=== PATIENT | female | born 1950 | race Caucasian/White ===

== ENCOUNTER 2017-10-27 12:28 | Inpatient (IN) | payer OTHER ==
[~2017-10-27] VITALS: Ht 152.4 cm; Wt 90.7 kg
[~2017-10-27 12:28] MED LIST: CIPRO500 MG PO; ENALAPRIL MALEAT5 MG PO; FLAGYL500MG PO; GYNE-LOTRIMIN45 GM VG; LEVOTHYROXINE88 MCG PO; SYNTHROID88 MCG; VASOTEC5 MG
[2017-11-08] MEDS ORDERED: PANTOPRAZOLE SO40 MG PO (08:24)
[2017-11-08] MEDS ORDERED: INTESTINEX680 M1 PO (08:24)
[2017-11-08] MEDS ORDERED: OXYC1TAB9 PO (08:24)
== END 2017-11-08 11:27 | disposition home or self-care (01) | DRG 329 ==
LOC: SURG 11-01 08:12 → O/R 11-01 08:12 → SURH 11-01 12:30 → SURG 11-01 18:59 → MEDI 11-01 18:59 → SURG 11-02 14:38
PROVIDERS: Surgery; Urology
PROC: 0DJD8ZZ Inspection of Lower Intestinal Tract, Via Natural or Artificial Opening Endoscopic (ICD-10-PCS; 2017-11-01)
PROC: 0T788DZ Dilation of Bilateral Ureters with Intraluminal Device, Via Natural or Artificial Opening Endoscopic (ICD-10-PCS; 2017-11-01)
PROC: 4A033R1 Measurement of Arterial Saturation, Peripheral, Percutaneous Approach (ICD-10-PCS; 2017-11-01)
PROC: 4A12X4Z Monitoring of Cardiac Electrical Activity, External Approach (ICD-10-PCS; 2017-11-01)
PROC: 5A09457 Assistance with Respiratory Ventilation, 24-96 Consecutive Hours, Continuous Positive Airway Pressure (ICD-10-PCS; 2017-11-01)
PROC: 0DTN4ZZ Resection of Sigmoid Colon, Percutaneous Endoscopic Approach (ICD-10-PCS; principal; 2017-11-01 17:45)
PROC: 0DTP4ZZ Resection of Rectum, Percutaneous Endoscopic Approach (ICD-10-PCS; 2017-11-01 17:45)
DX: K57.20 Diverticulitis of large intestine with perforation and abscess without bleeding (principal); J95.821 Acute postprocedural respiratory failure; N82.3 Fistula of vagina to large intestine; J95.89 Other postprocedural complications and disorders of respiratory system, not elsewhere classified; J98.11 Atelectasis; I10 Essential (primary) hypertension; E03.8 Other specified hypothyroidism; G47.33 Obstructive sleep apnea (adult) (pediatric); E66.01 Morbid (severe) obesity due to excess calories; D64.89 Other specified anemias

== ENCOUNTER 2018-10-17 10:14 | Emergency (ER) | payer OTHER ==
[~2018-10-17] VITALS: Ht 157.5 cm; Wt 93.4 kg
[~2018-10-17 10:14] MED LIST changes: +INTESTINEX680 M1 PO; +OXYC1TAB9 PO; +PANTOPRAZOLE SO40 MG PO
[2018-10-17] MEDS ORDERED: SYNTHROID100 MCG (10:25)
[2018-10-17] MEDS ORDERED: HYDROCHLOROTHIA25 MG (10:26)
[2018-10-17] MEDS ORDERED: INDOMETHACIN50 MG (10:27)
[2018-10-17] MEDS ORDERED: BACLOFEN10 MG (10:27)
== END 2018-10-17 16:04 | disposition home or self-care (01) ==
LOC: ER 10:14
DX: K80.80 Other cholelithiasis without obstruction (principal); N20.0 Calculus of kidney; R10.32 Left lower quadrant pain

== ENCOUNTER 2018-11-08 06:44 | Day surgery (SDC) | payer OTHER ==
[~2018-11-08 06:44] MED LIST changes: +BACLOFEN10 MG; +HYDROCHLOROTHIA25 MG; +INDOMETHACIN50 MG; +SYNTHROID100 MCG
== END 2018-11-08 10:54 | disposition home or self-care (01) ==
LOC: AMB-ENDOS 06:44
DX: K57.30 Diverticulosis of large intestine without perforation or abscess without bleeding (principal); K64.8 Other hemorrhoids

== ENCOUNTER 2024-06-09 11:41 | Emergency (ER) | payer OTHER ==
[~2024-06-09] VITALS: Ht 165.1 cm; Wt 84.8 kg
[~2024-06-09 11:41] MED LIST changes: +CELEBREX100 MG PO; +LEVSIN/SL0.125 MG PO; +PEPCID AC20 MG PO
[2024-06-09] MEDS ORDERED: 0.9 % SODIUM CHLORIDE 1,000 ML IV SCH (12:15)
[2024-06-09 14:06] LABS: HEMATOCRIT 39.9 % (36.0-45.00); HEMOGLOBIN 13.8 g/dL (12.0-15.00); MEAN CELL VOLUME 95.8 fL (80.00-100.00); MEAN CORPUSCULAR HEMOGLOBIN 33.1 pg (27.00-32.0); MEAN CORPUSCULAR HGB CONC 34.6 g/dl (32.0-36.0); PLATELET COUNT 232 K/uL (150-450); RED BLOOD COUNT 4.16 M/uL (4.00-6.00); RED CELL DISTRIBUTION WIDTH 13.3 % (11.5-14.5)
[2024-06-09 14:25] LABS: CALCIUM 9.4 mg/dL (8.5-10.1); CREATININE SERUM 0.7 mg/dL (0.55-1.02); GFR 81.36; POTASSIUM 3.62 mEq/L (3.5-5.1)
[2024-06-09 14:44] LABS: AMYLASE 35 U/L (25-115); LIPASE 23 U/L (13-75)
[2024-06-09 16:07] LABS: PH,URINE 7.5 (5.0-8.0); URINE APPEARANCE Cloudy; URINE BILIRRUBIN Negative (NEGATIVE); URINE BLOOD Negative; URINE COLOR Yellow; URINE GLUCOSE Negative (NEGATIVE); URINE KETONE Negative (NEGATIVE); URINE LEUKOCYTE Trace; URINE NITRATE Negative; URINE PROTEIN Negative (NEGATIVE); URINE UROBILINOGEN 0.2 E.U./dl
[2024-06-09 16:17] LABS: URINE BACTERIA 2551.4 uL (0.0-1933); URINE RBC 6.4 uL (0.0-20.8); URINE WBC 49.6 uL (0.0-23.2)
[2024-06-09 16:58] LABS: URINE CAST 0.61 uL (0.0-1.40)
[2024-06-09] MEDS ORDERED: FAMOTIDINE/PF 20 MG in 0.9 % SODIUM CHLORIDE 8 ML IV PUSH STA (17:10)
[2024-06-09] MEDS ORDERED: KETOROLAC TROMETHAMINE 30 MG VIAL IV ONE (17:30)
[2024-06-09] MEDS ORDERED: BACTRIM DS TAB1 EACH PO (19:38)
[2024-06-09] MEDS ORDERED: PEPCID AC20 MG PO (19:38)
[2024-06-09] MEDS ORDERED: LEVSIN/SL0.125 MG SL (19:38)
[2024-06-09] MEDS ORDERED: CEFTRIAXONE SODIUM 1,000 MG VIAL IV ONE (19:45)
== END 2024-06-09 20:03 | disposition home or self-care (01) ==
LOC: ER 11:41
PROVIDERS: Emergency Medicine
DX: N39.0 Urinary tract infection, site not specified (principal); R10.9 Unspecified abdominal pain; I10 Essential (primary) hypertension; Z88.0 Allergy status to penicillin; Z91.013 Allergy to seafood; Z91.041 Radiographic dye allergy status
CPT/HCPCS: 36415; 74177; 96365; 96366; 99284; J0696; J1885; J3490; J7030; Q9965